=== PATIENT | female | born 1955 | race Asian ===

== ENCOUNTER → 2016-09-27 | Outpatient (CLI) | payer OTHER | LOC: BRMIMAGING 15:09 | PROVIDERS: ATTEND Family Medicine | DX: Z12.31 Encounter for screening mammogram for malignant neoplasm of breast (principal) | CPT/HCPCS: G0202 ==

== ENCOUNTER → 2016-10-05 | Outpatient (CLI) | payer OTHER | LOC: BRMIMAGING 14:07 | PROVIDERS: ATTEND Family Medicine | DX: M81.0 Age-related osteoporosis without current pathological fracture (principal) ==

== ENCOUNTER → 2017-09-28 | Outpatient (CLI) | payer OTHER | LOC: BRMIMAGING 14:59 | PROVIDERS: ATTEND Family Medicine | DX: Z12.31 Encounter for screening mammogram for malignant neoplasm of breast (principal); R92.8 Other abnormal and inconclusive findings on diagnostic imaging of breast ==

== ENCOUNTER → 2017-10-12 | Outpatient (CLI) | payer OTHER | LOC: BRMIMAGING 08:49 | PROVIDERS: ATTEND Family Medicine | DX: R92.8 Other abnormal and inconclusive findings on diagnostic imaging of breast (principal) ==

== ENCOUNTER → 2018-09-29 | Outpatient (CLI) | payer OTHER | LOC: BRMIMAGING 14:53 ==

== ENCOUNTER → 2018-10-11 | Outpatient (CLI) | payer OTHER | LOC: BRMIMAGING 14:50 ==